=== PATIENT | female | born 2000 | race American Indian/Alaskan Native ===

== ENCOUNTER 2020-01-07 17:17 | Emergency (ER) | payer MEDICAID ==
--- NOTE | 2020-01-07 18:07 | Event Note ---
ED Screening Note ED Screening Note: timbo fell and broke laceration to the left ankle unsure of last tetanus immunization NO pmhx no allergies to meds This initial assessment/diagnostic orders/clinical plan/treatment(s) is/are subject to change based on patients health status, clinical progression and re- assessment by fellow clinical providers in the ED. Further treatment and workup at subsequent clinical providers discretion. Patient/guardian urged not to elope from the ED as their condition may be serious if not clinically assessed and managed. Initial orders include: XR of the left ankle/foot, tetanus, acc eval
--- NOTE | 2020-01-07 19:06 | XRay Report ---
LEFT ANKLE 3 VIEWS 183 INDICATION: broken glass, laceration, left ankle/foot pain COMPARISON: None available. FINDINGS: An ankle band compresses the ankle soft tissues. No fractures or dislocations are seen. No obvious foreign bodies are identified. No soft tissue gas is seen. LEFT FOOT 3 VIEWS 1839 INDICATION: broken glass, laceration, left ankle/foot pain COMPARISON: None available. FINDINGS: No fractures or dislocations are seen. No soft tissue gas is seen. No definite foreign body is identified. Tiny density in the dorsal soft tissues of the mid metacarpal area on lateral view is not clearly a foreign body. Signer Name: Yasir Diop MD Signed: 01/07/2020 7:01 PM Workstation Name: [id number]
--- NOTE | 2020-01-07 19:29 | Emergency Department Report ---
ED Lower Extremity HPI - General Chief Complaint: Wound/Laceration Stated Complaint: LFT ANKLE CUT/LFT FOOT NUMB Time Seen by Provider: 01/07/20 18:05 Source: patient Mode of arrival: Ambulatory Limitations: No Limitations - History of Present Illness MD Complaint: ankle injury, foot injury - Related Data Previous Rx's Medication Instructions Recorded Last Taken Type cephALEXin [Keflex] 500 mg PO Q8HR #21 cap 01/07/20 Unknown Rx traMADoL [Ultram] 50 mg PO Q6HR PRN #14 tablet 01/07/20 Unknown Rx Allergies Allergy/AdvReac Type Severity Reaction Status Date / Time No Known Allergies Allergy Unverified 01/07/20 17:23 ED Review of Systems ROS: Stated complaint: LFT ANKLE CUT/LFT FOOT NUMB Other details as noted in HPI Comment: All other systems reviewed and negative ED Past Medical Hx - Past Medical History Previous Medical History?: No Additional medical history: ANEMIA - Surgical History Past Surgical History?: No - Social History Smoking Status: Never Smoker Substance Use Type: None - Medications Home Medications: Home Medications Medication Instructions Recorded Confirmed Last Taken Type cephALEXin [Keflex] 500 mg PO Q8HR #21 cap 01/07/20 Unknown Rx traMADoL [Ultram] 50 mg PO Q6HR PRN #14 tablet 01/07/20 Unknown Rx ED Physical Exam - General Limitations: No Limitations General appearance: alert, in no apparent distress - Head Head exam: Present: atraumatic, normocephalic - Eye Eye exam: Present: normal appearance, PERRL, EOMI Pupils: Present: normal accommodation - ENT ENT exam: Present: mucous membranes moist - Neck Neck exam: Present: normal inspection, full ROM - Respiratory Respiratory exam: Present: normal lung sounds bilaterally. Absent: respiratory distress, wheezes, rales, chest wall tenderness, accessory muscle use - Cardiovascular Cardiovascular Exam: Present: regular rate, normal rhythm. Absent: systolic murmur, diastolic murmur, rubs, gallop - GI/Abdominal GI/Abdominal exam: Present: soft, normal bowel sounds. Absent: tenderness, guarding - Extremities Exam Extremities exam: Present: normal inspection - Expanded Lower Extremity Exam Left Ankle exam: Present: tenderness, laceration Neuro vascular tendon exam: Absent: pulse deficit, abnormal cap refill, motor deficit Gait: Positive: observed and normal 1 - Linear laceration to the lateral ankle 3 cm in length. Full range of motion is noted - Back Exam Back exam: Present: normal inspection - Neurological Exam Neurological exam: Present: alert, oriented X3 - Psychiatric Psychiatric exam: Present: normal affect, normal mood - Skin Skin exam: Present: warm, dry, normal color. Absent: intact, rash ED Course Vital Signs 01/07/20 18:06 Temperature 99.4 F Pulse Rate 96 H Respiratory 18 Rate Blood Pressure 116/72 O2 Sat by Pulse 99 Oximetry - Procedure Description Procedures done: Wound scrubbed and draped sterile fashion anesthesia achieved with 1% lidocaine with no epinephrine. 4-0 Prolene was placed in simple interrupted fashion x5 for wound closure with no structural complications. The procedure had to be stopped twice due to the patient's anxiety about moving for nurse was called in to help is the anxiety of the patient home had initially refused the procedure. ED Lower Extremity MDM - Radiology Data Radiology results: report reviewed Referring Physician:EMILY DINHPatient Name:ALONZO HAWLEYSPatient ID:[id number] of :[id number]:FemaleAccession:[id number] Date:[id number] Status:Finalized Findings [facility] [address] [place] [address] XRay Report Signed Patient: ALONZO FRIED MR#: [id number] : 2000 Acct:[id number] Age/Sex: 19 / F ADM Date: 01/07/20 Loc: ED Attending Dr: Ordering Physician: AUSTYN PELLETIER Date of Service: 01/07/20 Procedure(s): XR ankle 3+V LT Accession Number(s): [id number] cc: AUSTYN PELLETIER Fluoro Time In Minutes: LEFT ANKLE 3 VIEWS 183 INDICATION: broken glass, laceration, left ankle/foot pain COMPARISON: None available. FINDINGS: An ankle band compresses the ankle soft tissues. No fractures or dislocations are seen. No obvious foreign bodies are identified. No soft tissue gas is seen. LEFT FOOT 3 VIEWS 183 INDICATION: broken glass, laceration, left ankle/foot pain COMPARISON: None available. FINDINGS: No fractures or dislocations are seen. No soft tissue gas is seen. No definite foreign body is identified. Tiny density in the dorsal soft tissues of the mid met acarpal area on lateral view is not clearly a foreign body. Signer Name: Yasir Diop MD Signed: 01/07/2020 7:01 PM Workstation Name: [id number] Transcribed By: Dictated By: Yasir Diop MD Electronically Authenticated By: Yasir Diop MD Signed Date/Time: 01/07/201900 DD/ 57 TD/TT: Critical care attestation.: If time is entered above; I have spent that time in minutes in the direct care of this critically ill patient, excluding procedure time. ED Disposition Clinical Impression: Laceration of ankle Disposition: DC-01 TO HOME OR SELFCARE Is pt being admited?: No Does the pt Need Aspirin: No Condition: Stable Instructions: Suture Care (ED), Laceration (ED) Additional Instructions: Please return in 10 to 14 days for suture removal Prescriptions: cephALEXin [Keflex] 500 mg PO Q8HR #21 cap traMADoL [Ultram] 50 mg PO Q6HR PRN #14 tablet PRN Reason: Pain Referrals: PRIMARY CAREMD [Primary Care Provider] - 3-5 Days [facility] [Provider Group] - 3-5 Days
[2020-01-07] MEDS ORDERED: LIDOCAINE-MPF (1%) 10 MG/1 ML VIAL 5 ML ONE (19:52)
[2020-01-07] MEDS ORDERED: IBUPROFEN 800 MG TAB ONE (19:54)
[2020-01-07] MEDS ORDERED: LIDOCAINE-MPF (1%) 10 MG/1 ML VIAL 5 ML INFILTRATI ONE (19:55)
[2020-01-07] MEDS ORDERED: IBUPROFEN 800 MG TAB PO ONE (20:13)
[2020-01-07 22:02] VITALS: BP 119/72
== END 2020-01-07 22:01 | disposition home or self-care (01) ==
LOC: ED 17:17
DX: S91.012A Laceration without foreign body, left ankle, initial encounter (principal); D64.9 Anemia, unspecified; Z79.899 Other long term (current) drug therapy; W25.XXXA Contact with sharp glass, initial encounter; Y93.89 Activity, other specified; Y92.89 Other specified places as the place of occurrence of the external cause; Y99.8 Other external cause status